=== PATIENT | female | born 1990 | race Caucasian/White ===

== ENCOUNTER → 2016-11-17 | Outpatient (CLI) | payer OTHER ==
--- NOTE | 2016-11-18 16:08 | US ---
EXAM DESCRIPTION: Pelvic,Non-OB on ultrasound. CLINICAL HISTORY: RIGHT LOWER QUADRANT PAIN COMPARISON: None. TECHNIQUE: Transcutaneous scanning through the urine filled bladder. Endovaginal scanning. Two-dimensional and Doppler modes. FINDINGS: The uterus measures 7.1 x 5.0 x 3.4 cm. Endometrial thickness 6.0 mm. The myometrium appears heterogeneous. The uterus is not retroverted. Cervix is remarkable. Cul-de-sac contains moderate fluid. Right ovary measures 4.3 x 4.4 x 1.9 cm. Normal color and waveform Vascularity Doppler. More than 10 follicles but no cysts. No fluid around the ovary No adnexal mass. Left ovary measures 4.0 x 3.8 x 2.3 cm. Normal color and waveform Vascularity Doppler. More than 10 follicles but no cysts. Minimal fluid around the ovary. No adnexal mass. No solid mass cyst or fluid collection in the right lower quadrant. Appendix was not visualized. IMPRESSION: 1. No endometrial thickening or fluid in the endometrial cavity. Moderate fluid in the cul-de-sac. 2. Numerous follicles bilateral ovaries but no cysts. Free fluid abutting both ovaries. Appendix not seen in the right lower quadrant. Electronically signed by: Vidal Bray MD 11/18/2016 4:07 PM CDT
== END | disposition home or self-care (01) ==
LOC: LAB.O 10:16
PROVIDERS: ATTEND Nurse Practitioner Family
DX: R10.31 Right lower quadrant pain (principal); R10.2 Pelvic and perineal pain